=== PATIENT | female | born 1995 | race Caucasian/White ===

== ENCOUNTER 2025-08-18 16:25 | Emergency (ER) | payer MEDICAID, OTHER ==
[~2025-08-18] VITALS: Ht 165.1 cm; Wt 79.5 kg
[2025-08-18 16:27] VITALS: TEMP 97.7
[2025-08-18] MEDS ORDERED: FLON1SPR NARES ×2 (16:33→20:11)
[2025-08-18] MEDS ORDERED: VENTAER INH ×2 (16:33→20:11)
[2025-08-18] MEDS ORDERED: MONT-5 PO (16:33)
[2025-08-18] MEDS ORDERED: SYMB16INH INH ×2 (16:33→20:11)
[2025-08-18] MEDS ORDERED: NEBU1EAC78 MC (20:11)
[2025-08-18] MEDS ORDERED: IPRA0.00 NEB (20:11)
[2025-08-18] MEDS ORDERED: MONT10TA97 PO (20:11)
[2025-08-18 20:16] VITALS: BP 111/57; O2SAT 96
== END 2025-08-18 20:19 | disposition home or self-care (01) ==
LOC: M ED 16:25
DX: J45.909 Unspecified asthma, uncomplicated (principal); Z88.1 Allergy status to other antibiotic agents; Z91.013 Allergy to seafood; Z79.52 Long term (current) use of systemic steroids; Z79.899 Other long term (current) drug therapy